=== PATIENT | male | born 1935 | race Caucasian/White ===

== ENCOUNTER 2019-05-12 13:21 | Outpatient (CLI) | payer MEDICARE ==
--- NOTE | 2019-05-12 15:09 | RAD ---
Frontal radiograph chest 3 views right RIBS: 05/12/2019 COMPARISON: None HISTORY: Posterior right-sided rib pain FINDINGS: Frontal radiograph chest demonstrates no pneumothorax or pleural fluid and no focal consoli dation or alveolar edema. 3 dedicated right rib radiographs demonstrate no displaced rib fracture. There is degenerative change involving the right glenohumeral joint and bilateral acromioclavicular j oints. IMPRESSION: No displaced fracture seen. If symptoms persist, CT suggested.
== END 2019-05-12 13:22 | disposition home or self-care (01) ==
LOC: BICRAD 13:21
PROVIDERS: ATTEND Family Medicine
DX: R07.81 Pleurodynia (principal); M54.9 Dorsalgia, unspecified

== ENCOUNTER 2020-05-06 16:16 | Emergency (ER) | payer MEDICARE ==
[2020-05-06 16:50] LABS: #Basophils 0.1 thou/uL (0.0-0.2); #Eosinphils 0.4 thou/uL (0.0-0.7); #Lymphocytes 1.2 thou/uL (1.20-3.40); #Monocytes 0.6 thou/uL (0.11-0.59); #Neutrophils 3.7 thou/uL (1.40-6.50); %Basophils 0.9 % (0.0-1.0); %Eosinophils 6.5 % (0.0-10.0); %Lymphocytes 19.4 % (21.0-51.0); %Monocytes 10.1 % (0.0-10.0); Mean Corpuscular HGB CONC 33.1 g/dL (32.0-36.0); Mean Corpuscular Volume 96.9 fL (78.0-98.0); Mean Platelet Volume 7.2 fL (7.4-10.4); Platelet Count 192 thou/uL (130-400); RBC Distribution Width 12.1 % (11.5-14.5); Red Blood Cell (RBC) Count 4.07 mill/uL (4.70-6.10); White Blood Cell (WBC) Count 5.9 thou/uL (4.8-10.8)
--- NOTE | 2020-05-06 17:07 | CT ---
CT head noncontrast HISTORY: Fall. Injury. FINDINGS: There is no evidence of acute intracranial hemorrhage or infarct. Mild diffuse cortical atr ophy and chronic ischemic small vessel disease. There is no mass effect or shift of midline structures. Globes are intact. Tiny pockets of gas within these soft tissues around the nasal bone suggest injury . No displaced fracture evident on the incompletely visualized nasal bones. IMPRESSION : No acute intracranial abnormalities are demonstrated.
--- NOTE | 2020-05-06 17:08 | CT ---
CT Facial Bones WO Con History: Trauma. Fall Comparison: None. Findings: Normal location of the temporomandibular joints. The mandible is without fracture. Maxilla is without fracture. The zygoma and zygomatic arches are without fracture. No displaced nasal bone fracture. No retrobulbar hematoma. The medial orbital blum, lateral orbital blum, orbital floors, orbital celi fs are intact. Right nasal labial laceration. Right forehead soft tissue contusion and small laceration. No displaced maxillary fracture. Upper cervical spine alignment appears normal. Impression: Soft tissue lacerations and contusions, mild, without facial fracture or retrobulbar izabella marilyn.
--- NOTE | 2020-05-06 17:10 | CT ---
CT cervical spine noncontrast HISTORY: Injury. FINDINGS: Vertebral body heights and alignment are maintained. Cervicothoracic junction is intact. Disc space narrowing most pronounced at the C5-6 and C6-7 levels. Prominent osteophytosis of the vert ebral bodies and facets. Central canal stenosis most pronounced at the C5-6 level. Dystrophic calcification is present within the posterior ligamentous structures at the C5 level. No acute fracture or dislocation. IMPRESSION : No acute osseous abnormalities are demonstrated.
--- NOTE | 2020-05-06 17:12 | CT ---
CT Lumbar Spine WO Con History: Fall from standing Comparison: None. Findings: No acute lumbar spine fracture or malalignment. No acute listhesis. No acute traumatic face t joint widening. Spinous processes are intact. Transverse processes are intact. Visualized sacrum is without fracture. No SI joint widening. Multiple left renal parapelvic cysts. Impression: No acute lumbar spine fracture.
[2020-05-06 17:19] LABS: ALT (SGPT) 26 U/L (8-55); AST (SGOT) 30 U/L (5-34); Albumin 3.9 g/dL (3.4-4.8); Alkaline Phosphatase 73 U/L (40-110); Anion Gap 8 mmol/L (10-20); BUN (Urea Nitrogen) 23 mg/dL (8.4-25.7); Bilirubin, Total 0.7 mg/dL (0.2-1.2); Calc. Creatinine Clearance 0 mL/min (70-130); Calcium 8.8 mg/dL (7.8-10.44); Carbon Dioxide 29 mmol/L (23-31); Chloride 104 mmol/L (98-107); Estimated GFR-MDRD 60; Globulin 2.9 g/dL (2.4-3.5); Glucose 135 mg/dL (83-110); Potassium 4.1 mmol/L (3.5-5.1); Protein, Total 6.8 g/dL (5.8-8.1); Sodium 137 mmol/L (136-145)
[2020-05-06 17:35] LABS: CKMB 6.1 ng/mL (0-6.6)
[2020-05-06] MEDS ORDERED: Lidocaine 1% w/Epinephrine 1:100K 20 ML VIAL ONE (18:47)
[2020-05-06] MEDS ORDERED: Diazepam 5 MG TAB ONE (18:49)
[2020-05-06] MEDS ORDERED: Boostrix 0.5 ML VIAL ONE (19:54)
[2020-05-06 20:07] LABS: Troponin I 0.092 ng/mL (< 0.028)
== END 2020-05-06 21:41 | disposition home or self-care (01) ==
LOC: ERS 16:16
DX: S01.81XA Laceration without foreign body of other part of head, initial encounter (principal); W01.0XXA Fall on same level from slipping, tripping and stumbling without subsequent striking against object, initial encounter
CPT/HCPCS: 12014; 70450; 70486; 72125; 72131; 80053; 82553; 84484; 85025; 90471; 90715; 93005

== ENCOUNTER 2020-09-28 09:35 | Outpatient (CLI) | payer MEDICARE ==
--- NOTE | 2020-09-28 10:14 | RAD ---
EXAM: Chest 2 views: HISTORY: Right chest pain COMPARISON: None. FINDINGS: There is a normal-sized cardiomediastinal silhouette. Calcified granuloma projects over the left екатерина g. There is no evidence of consolidation. There may be small bilateral pleural effusions. Degenerative changes are seen in the spine. IMPRESSION: Small bilateral pleural effusions
== END 2020-09-28 09:36 | disposition home or self-care (01) ==
LOC: BICRAD 09:35
PROVIDERS: ATTEND Family Medicine
DX: R60.9 Edema, unspecified (principal); J90 Pleural effusion, not elsewhere classified; R06.00 Dyspnea, unspecified
CPT/HCPCS: 36415; 71046; 80053; 83880; 85025

== ENCOUNTER 2020-10-06 14:06 | Outpatient (CLI) | payer MEDICARE | END 2020-10-06 14:07 | disposition home or self-care (01) | LOC: BICRAD 14:06 | PROVIDERS: ATTEND Internal Medicine Cardiovascular Disease | DX: I87.2 Venous insufficiency (chronic) (peripheral) (principal); J90 Pleural effusion, not elsewhere classified | CPT/HCPCS: 71046 ==

== ENCOUNTER 2021-03-20 12:39 | Outpatient (CLI) | payer MEDICARE | END 2021-03-20 12:40 | disposition home or self-care (01) | LOC: BICRAD 12:39 | PROVIDERS: ATTEND Physician Assistant | DX: S99.912A Unspecified injury of left ankle, initial encounter (principal); S99.922A Unspecified injury of left foot, initial encounter; M79.89 Other specified soft tissue disorders ==

== ENCOUNTER 2021-03-21 07:09 | Outpatient (CLI) | payer MEDICARE | END 2021-03-21 07:10 | disposition home or self-care (01) | LOC: BICULT 07:09 | PROVIDERS: ATTEND Physician Assistant | DX: S99.912A Unspecified injury of left ankle, initial encounter (principal); R22.42 Localized swelling, mass and lump, left lower limb | CPT/HCPCS: 76999 ==

== ENCOUNTER 2022-03-07 13:33 | Outpatient (CLI) | payer MEDICARE ==
[2022-03-07 14:36] LABS: ALT (SGPT) 28 U/L (8-55); AST (SGOT) 34 U/L (5-34); Alkaline Phosphatase 135 U/L (40-110); Anion Gap 13 mmol/L (10-20); BUN (Urea Nitrogen) 34 mg/dL (8.4-25.7); Bilirubin, Total 1.4 mg/dL (0.2-1.2); Calc. Creatinine Clearance 0 mL/min (70-130); Calcium 9.1 mg/dL (7.8-10.44); Carbon Dioxide 24 mmol/L (23-31); Chloride 104 mmol/L (98-107); Estimated GFR 51; Globulin 3.3 g/dL (2.4-3.5); Glucose 103 mg/dL (83-110); Potassium 4.3 mmol/L (3.5-5.1); Protein, Total 7.3 g/dL (5.8-8.1); Sodium 137 mmol/L (136-145)
[2022-03-07 14:49] LABS: #Basophils 0.1 10x3/uL (0.0-0.2); #Eosinphils 0.2 10x3/uL (0.0-0.5); #Monocytes 0.5 10x3/uL (0.0-1.1); #Neutrophils 3.4 10x3/uL (1.5-8.4); %Eosinophils 4.7 % (0.0-6.0); %Lymphocytes 17.6 % (18.0-47.0); %Monocytes 10.4 % (0.0-10.0); %Neutrophils 65.9 % (40.0-75.0); Hemoglobin 12.4 g/dL (13.5-17.5); Mean Corpuscular HGB CONC 33.2 g/dL (32.0-36.0); Mean Corpuscular Volume 96.6 fl (81.2-95.1); Mean Platelet Volume 9.7 fl (7.4-10.4); Platelet Count 159 10x3/uL (150-450); RBC Distribution Width 14.7 % (11.5-14.5); Red Blood Cell (RBC) Count 3.87 10x6/uL (4.32-5.72); White Blood Cell (WBC) Count 5.1 10x3/uL (3.5-10.5)
== END 2022-03-07 13:34 | disposition home or self-care (01) ==
LOC: LABBT 13:33
PROVIDERS: ATTEND Internal Medicine Cardiovascular Disease
DX: Z01.812 Encounter for preprocedural laboratory examination (principal); Z20.822 Contact with and (suspected) exposure to COVID-19
CPT/HCPCS: 80053; 85025; 87811

== ENCOUNTER 2022-03-12 08:21 | Inpatient (IN) | payer MEDICARE ==
[2022-03-12] MEDS ORDERED: Iopamidol 370 76% 100 ML VIAL ONE (09:11)
[2022-03-12] MEDS ORDERED: PROPOFOL 40 ML ONE (09:22)
[2022-03-12] MEDS ORDERED: Ketamine 50 MG/ML (10ML VIAL) ONE (09:23)
[2022-03-12] MEDS ORDERED: PROPOFOL 200 MG/20 ML VIAL ONE (10:02)
[2022-03-12] MEDS ORDERED: Lidocaine 1% PF 5 ML VIAL ONE (10:02)
[2022-03-12 13:11] LABS: #Eosinphils 0.2 thou/uL (0.0-0.7); #Lymphocytes 0.8 thou/uL (1.20-3.40); #Monocytes 0.5 thou/uL (0.11-0.59); #Neutrophils 3.4 thou/uL (1.40-6.50); %Basophils 0.5 % (0.0-1.0); %Eosinophils 4.4 % (0.0-10.0); %Lymphocytes 15.5 % (21.0-51.0); %Monocytes 10.2 % (0.0-10.0); %Neutrophils 69.4 % (42.0-75.0); Hemoglobin 12.6 g/dL (14.0-18.0); Mean Corpuscular Hemoglobin 32.4 pg (27.0-31.0); Mean Platelet Volume 7.2 fL (7.4-10.4); Platelet Count 138 thou/uL (130-400); RBC Distribution Width 13.5 % (11.5-14.5); Red Blood Cell (RBC) Count 3.89 mill/uL (4.70-6.10); White Blood Cell (WBC) Count 4.9 thou/uL (4.8-10.8)
[2022-03-12 13:36] LABS: ALT (SGPT) 23 U/L (8-55); AST (SGOT) 29 U/L (5-34); Albumin 3.8 g/dL (3.4-4.8); Alkaline Phosphatase 133 U/L (40-110); Anion Gap 14 mmol/L (10-20); BUN (Urea Nitrogen) 36 mg/dL (8.4-25.7); Bilirubin, Total 1.8 mg/dL (0.2-1.2); Calc. Creatinine Clearance 40 mL/min (70-130); Calcium 8.9 mg/dL (7.8-10.44); Carbon Dioxide 23 mmol/L (23-31); Chloride 106 mmol/L (98-107); Estimated GFR 50; Globulin 3.5 g/dL (2.4-3.5); Glucose 90 mg/dL (83-110); Potassium 4.2 mmol/L (3.5-5.1); Protein, Total 7.3 g/dL (5.8-8.1); Sodium 139 mmol/L (136-145)
[2022-03-12 13:52] LABS: Free T4 (Free Thyroxine) 1.43 ng/dL (0.70-1.48); Thyroid Stimulating Hormone 3.3989 uIU/mL (0.35-4.94)
[2022-03-12 15:45] VITALS: BMI 24.9
[2022-03-12 16:18] LABS: Bacteria/HPF None Seen HPF (None Seen); Bilirubin Negative (Negative); Blood, Urine Negative (Negative); Clarity Clear (Clear); Glucose, Urine (Dipstick) Normal (Negative); Ketone, Urine Negative (Negative); Leukocyte Negative Leu/uL (Negative); Nitrite Negative (Negative); Protein, Urine (Dipstick) 20 mg/dL (Neg-Trace); RBC/HPF 0-3 HPF (0-3); Squamous Epithelial None Seen HPF (0-3); WBC/HPF 0-3 HPF (0-3); pH, Urine 5.5 (5.0-9.0)
[2022-03-12 16:19] LABS: Specific Gravity, Urine 1.046 (1.002-1.036)
[2022-03-12 17:04] LABS: Actual Bicarbonate (HCO3a) 20.9 mEq/L (22-28); Base Excess (BEa) -2.2 mEq/L (-2.0 to +3.0); CO2 Tension 31.1 mmHg (35.0-45.0); Calcium, Ionized (arterial) 1.14 mmol/L (1.12-1.30); Carboxyhemoglobin (COHb) 0.4 gm% (0.0-3.0); Hemoglobin (Hb) 13.2 g/dL (14.0-18.0); Potassium - ABG Lab 3.98 mmol/L (3.70-5.30); pH, Arterial 7.45 (7.35-7.45)
[2022-03-12 17:06] LABS: ALV-art Gradient 250.565 mmHg (0-20); O2 Tension (PaO2), arterial 52.8 mmHg (> 60.0); Puncture Site RRA
[2022-03-12] MEDS ORDERED: Furosemide 100 MG/10 ML VIAL SLOW IVP SCH (17:45)
[2022-03-12] MEDS: Flecainide 50 MG TAB PO SCH (21:01)
[2022-03-12] MEDS: Apixaban 5 MG TAB PO SCH (21:01)
[2022-03-13 04:41] LABS: #Eosinphils 0.2 thou/uL (0.0-0.7); #Lymphocytes 0.7 thou/uL (1.20-3.40); #Monocytes 0.6 thou/uL (0.11-0.59); #Neutrophils 3.4 thou/uL (1.40-6.50); %Basophils 0.8 % (0.0-1.0); %Lymphocytes 14.5 % (21.0-51.0); %Monocytes 12.8 % (0.0-10.0); %Neutrophils 67.9 % (42.0-75.0); Hemoglobin 11.4 g/dL (14.0-18.0); Mean Corpuscular HGB CONC 32.2 g/dL (32.0-36.0); Mean Corpuscular Hemoglobin 33.6 pg (27.0-31.0); Mean Platelet Volume 7.7 fL (7.4-10.4); Platelet Count 129 thou/uL (130-400); RBC Distribution Width 13.3 % (11.5-14.5); Red Blood Cell (RBC) Count 3.39 mill/uL (4.70-6.10)
[2022-03-13 05:03] LABS: ALT (SGPT) 23 U/L (8-55); AST (SGOT) 28 U/L (5-34); Albumin 3.6 g/dL (3.4-4.8); Alkaline Phosphatase 129 U/L (40-110); Anion Gap 15 mmol/L (10-20); BUN (Urea Nitrogen) 35 mg/dL (8.4-25.7); Bilirubin, Total 1.6 mg/dL (0.2-1.2); Calc. Creatinine Clearance 41 mL/min (70-130); Calcium 8.7 mg/dL (7.8-10.44); Carbon Dioxide 22 mmol/L (23-31); Chloride 104 mmol/L (98-107); Estimated GFR 50; Globulin 3.1 g/dL (2.4-3.5); Glucose 99 mg/dL (83-110); Potassium 3.9 mmol/L (3.5-5.1); Protein, Total 6.7 g/dL (5.8-8.1); Sodium 137 mmol/L (136-145)
[2022-03-13] MEDS: Furosemide 40 MG/4 ML VIAL SLOW IVP SCH ×2 (06:24→12:51)
[2022-03-13] MEDS: Levothyroxine Sodium 25 MCG TAB PO SCH (06:24)
[2022-03-13] MEDS: Multivit, Therapeutic 1 TAB PO SCH (08:08)
[2022-03-13] MEDS: Flecainide 50 MG TAB PO SCH ×2 (08:08→20:22)
[2022-03-13] MEDS: Apixaban 5 MG TAB PO SCH ×2 (08:08→20:22)
[2022-03-13] MEDS: Potassium Chloride 10 MEQ TAB PO SCH (08:08)
[2022-03-14 05:15] LABS: #Eosinphils 0.4 thou/uL (0.0-0.7); #Lymphocytes 0.9 thou/uL (1.20-3.40); #Monocytes 0.7 thou/uL (0.11-0.59); #Neutrophils 3.2 thou/uL (1.40-6.50); %Basophils 0.7 % (0.0-1.0); %Eosinophils 7.8 % (0.0-10.0); %Lymphocytes 16.7 % (21.0-51.0); %Monocytes 12.8 % (0.0-10.0); Hemoglobin 11.6 g/dL (14.0-18.0); Mean Corpuscular HGB CONC 32.1 g/dL (32.0-36.0); Mean Corpuscular Hemoglobin 33.6 pg (27.0-31.0); Mean Platelet Volume 7.6 fL (7.4-10.4); Platelet Count 137 thou/uL (130-400); RBC Distribution Width 13.4 % (11.5-14.5); Red Blood Cell (RBC) Count 3.45 mill/uL (4.70-6.10); White Blood Cell (WBC) Count 5.2 thou/uL (4.8-10.8)
[2022-03-14 05:28] LABS: ALT (SGPT) 20 U/L (8-55); AST (SGOT) 24 U/L (5-34); Albumin 3.4 g/dL (3.4-4.8); Alkaline Phosphatase 145 U/L (40-110); Anion Gap 13 mmol/L (10-20); BUN (Urea Nitrogen) 38 mg/dL (8.4-25.7); Bilirubin, Total 1.2 mg/dL (0.2-1.2); Calc. Creatinine Clearance 37 mL/min (70-130); Calcium 8.7 mg/dL (7.8-10.44); Carbon Dioxide 25 mmol/L (23-31); Chloride 103 mmol/L (98-107); Estimated GFR 45; Glucose 98 mg/dL (83-110); Potassium 4.1 mmol/L (3.5-5.1); Protein, Total 6.4 g/dL (5.8-8.1); Sodium 137 mmol/L (136-145)
[2022-03-14] MEDS: Furosemide 40 MG/4 ML VIAL SLOW IVP SCH (06:25)
[2022-03-14] MEDS: Levothyroxine Sodium 25 MCG TAB PO SCH (06:25)
[2022-03-14] MEDS: Apixaban 5 MG TAB PO SCH ×2 (10:11→20:00)
[2022-03-14] MEDS: Potassium Chloride 10 MEQ TAB PO SCH (10:11)
[2022-03-14] MEDS: Multivit, Therapeutic 1 TAB PO SCH (10:12)
[2022-03-14] MEDS: Flecainide 50 MG TAB PO SCH ×2 (10:12→20:00)
[2022-03-15 04:43] LABS: #Eosinphils 0.4 thou/uL (0.0-0.7); #Lymphocytes 0.8 thou/uL (1.20-3.40); #Monocytes 0.7 thou/uL (0.11-0.59); #Neutrophils 3.1 thou/uL (1.40-6.50); %Basophils 0.6 % (0.0-1.0); %Eosinophils 8.1 % (0.0-10.0); %Neutrophils 61.3 % (42.0-75.0); Hemoglobin 11.8 g/dL (14.0-18.0); Mean Corpuscular Hemoglobin 33.1 pg (27.0-31.0); Mean Platelet Volume 7.8 fL (7.4-10.4); Platelet Count 143 thou/uL (130-400); RBC Distribution Width 13.4 % (11.5-14.5); Red Blood Cell (RBC) Count 3.56 mill/uL (4.70-6.10)
[2022-03-15 05:13] LABS: ALT (SGPT) 20 U/L (8-55); AST (SGOT) 25 U/L (5-34); Albumin 3.5 g/dL (3.4-4.8); Alkaline Phosphatase 143 U/L (40-110); Anion Gap 13 mmol/L (10-20); BUN (Urea Nitrogen) 41 mg/dL (8.4-25.7); Bilirubin, Total 1.2 mg/dL (0.2-1.2); Calc. Creatinine Clearance 35 mL/min (70-130); Calcium 8.9 mg/dL (7.8-10.44); Carbon Dioxide 27 mmol/L (23-31); Chloride 102 mmol/L (98-107); Estimated GFR 43; Globulin 3.2 g/dL (2.4-3.5); Glucose 100 mg/dL (83-110); Potassium 4.2 mmol/L (3.5-5.1); Protein, Total 6.7 g/dL (5.8-8.1); Sodium 138 mmol/L (136-145)
[2022-03-15] MEDS: Levothyroxine Sodium 25 MCG TAB PO SCH (06:00)
[2022-03-15] MEDS: Potassium Chloride 10 MEQ TAB PO SCH (09:28)
[2022-03-15] MEDS: Flecainide 50 MG TAB PO SCH (09:28)
[2022-03-15] MEDS: Apixaban 5 MG TAB PO SCH (09:28)
[2022-03-15] MEDS: Multivit, Therapeutic 1 TAB PO SCH (09:28)
[2022-03-15 15:47] VITALS: BP 134/87; TEMP 98
== END 2022-03-15 16:45 | disposition home or self-care (01) | DRG 292 ==
LOC: SDC 08:21 → 2SW 12:39 → OBSVTOIN 03-13 15:22
PROVIDERS: ADMIT Internal Medicine Cardiovascular Disease; ATTEND Internal Medicine Cardiovascular Disease
PROC: 5A2204Z Restoration of Cardiac Rhythm, Single (ICD-10-PCS; principal; 2022-03-12)
PROC: B24BZZ4 Ultrasonography of Heart with Aorta, Transesophageal (ICD-10-PCS; 2022-03-12)
DX: I50.33 Acute on chronic diastolic (congestive) heart failure (principal); E85.4 Organ-limited amyloidosis; I48.19 Other persistent atrial fibrillation; I43 Cardiomyopathy in diseases classified elsewhere; K21.9 Gastro-esophageal reflux disease without esophagitis; I08.3 Combined rheumatic disorders of mitral, aortic and tricuspid valves; I49.5 Sick sinus syndrome; I87.2 Venous insufficiency (chronic) (peripheral); R09.02 Hypoxemia; Z85.46 Personal history of malignant neoplasm of prostate; Z98.890 Other specified postprocedural states; Z90.49 Acquired absence of other specified parts of digestive tract; Z79.899 Other long term (current) drug therapy; Z79.890 Hormone replacement therapy; Z79.01 Long term (current) use of anticoagulants
CPT/HCPCS: 36415; 36600; 71046; 71275; 80053; 81001; 82805; 83880; 84439; 84443; 84481; 85025; 87040; 92960; 93005; 93010; 93312; 96374; 96376; G0378; J1940; J2704; Q9967